=== PATIENT | male | born 1955 | race Caucasian/White ===

== ENCOUNTER 2017-05-12 08:37 | Day surgery (SDC) | payer OTHER ==
[~2017-05-12 08:37] MED LIST: Acetaminophen TAB* 325 MG PO PRN; Buffered Lidocaine 0.9% SYRIN* 5 ML/SYR SYRINGE INTRADERM ONE
[2017-05-12] MEDS ORDERED: Midazolam* 1 MG/ML 2 ML VIAL (2 MG) ONE ×2 (10:38→10:40)
[2017-05-12 11:12] VITALS: BP 124/79
[2017-05-12] MEDS ORDERED: Lidocaine 1% MPF* 2 ML VIAL ONE (15:09)
[2017-05-12] MEDS ORDERED: Phenylephrine 2.5% OPTH.SOL* 2 ML BTL ONE (15:09)
[2017-05-12] MEDS ORDERED: Cyclopentolate 1% OPTH.SOL* 2 ML BTL ONE (15:09)
[2017-05-12] MEDS ORDERED: Neomycin/Polymy/Dex OPHTH.OIN* 3.5 GM ONE (15:10)
[2017-05-12] MEDS ORDERED: Ketorolac 0.5% OPHTH (NF) 0.5 % 5 ML BTL ONE (15:10)
[2017-05-12] MEDS ORDERED: Tropicamide 1% OPTH.SOL* BTL ONE (15:10)
[2017-05-12] MEDS ORDERED: Tetracaine 0.5% OPTH.SOL 4 ML* 1 DROP BTL ONE (15:10)
--- NOTE | 2017-05-13 01:50 | OP ---
DATE OF OPERATION: 05/12/17 - [facility] DATE OF : 53 SURGEON: Dr. Ross Boss. P[employer]ING [employer]SE [employer]ER: None. ANESTHESIA: Topical with intravenous sedation. PRE-OP DIAGNOSIS: Cataract with astigmatism left eye. POST-OP DIAGNOSIS: Cataract with astigmatism left eye. OPERATIVE PROCEDURE: Phacoemulsification and cataract extraction with posterior chamber toric intraocular lens implant, left eye. COMPLICATIONS: None. BLOOD LOSS: None. DESCRIPTION OF PROCEDURE: The patient was seen preoperatively in the holding area and placed in the upright seated position. A lisbeth was made at the 6 o' clock position of the limbus of the left eye. The patient was subsequently brought to the operating room and received a small amount of intravenous sedation. A drop of tetracaine was placed in his left eye. The patient was prepped and draped in the usual sterile fashion for ophthalmic surgery. Attention was directed to the left eye where a speculum was placed. A paracentesis was created at the 5 o'clock position. A 0.1 cc of 1% preservative -free lidocaine was injected into the anterior chamber followed by DisCoVisc. The eye was digitally stabilized and a 2.75 mm keratome was used to create a triplanar clear corneal incision at the 3 o'clock position. A continuous curvilinear capsulorrhexis was created with a cystotome and Utrata forceps. BSS on a cannula was used to hydrodissect the lens from the capsule. Phacoemulsification was performed in a [id number] technique to create four fragments which were removed. Residual cortical material was removed with irrigation and aspiration. Healon was used to inflate the capsular bag. A Bolden marker and marking pen were used to lisbeth the 110 degree access on the limbus. An SN6AT3 19.5 diopter lens was folded and inserted into the capsular bag. A Sinskey hook was used to dial the lens to appropriate axial alignment. The Sinskey hook remained in the eye through paracentesis to stabilize the lens. Irrigation and aspiration was performed to remove viscoelastic from the eye. The Sinskey hook was removed. BSS on a cannula was used to hydrate the corneal stroma and seal the wound. At the end of the case, the pupil was round. The lens was centered and stable and axial line. The eye pressure appeared normal and the wound was watertight. The speculum was removed and topical Maxitrol ointment was placed on the surface of the eye. The eye was closed, patched and shielded and the patient was sent to the recovery room in stable condition with postop instructions and followup appointment given. [id number]/[facility] #: [id number] CIELOD
== END 2017-05-12 11:24 | disposition home or self-care (01) ==
LOC: OREAST 08:37
PROVIDERS: ATTEND Ophthalmology
DX: H25.12 Age-related nuclear cataract, left eye (principal); H52.202 Unspecified astigmatism, left eye; E78.5 Hyperlipidemia, unspecified; G47.33 Obstructive sleep apnea (adult) (pediatric); Z68.41 Body mass index [BMI] 40.0-44.9, adult; M19.90 Unspecified osteoarthritis, unspecified site
CPT/HCPCS: A9270-GY; J2250; V2787

== ENCOUNTER 2017-05-19 06:58 | Day surgery (SDC) | payer OTHER ==
[2017-05-19] MEDS ORDERED: Midazolam* 1 MG/ML 2 ML VIAL (2 MG) ONE ×2 (07:51→08:24)
[2017-05-19] MEDS ORDERED: fentaNYL* 50 MCG/ML 2 ML VIAL (100 MCG VIAL) ONE (07:51)
[2017-05-19 08:52] VITALS: BP 118/72
--- NOTE | 2017-05-20 01:06 | OP ---
OPERATIVE REPORT: DATE OF OPERATION: 05/19/17 - [facility] DATE OF : 53 SURGEON: Dr. Boss. SENIOR FINANCIAL: None. ANESTHESIA: Topical with intravenous sedation. PRE-OP DIAGNOSIS: Cataract, right eye, with astigmatism. POST-OP DIAGNOSIS: Cataract, right eye, with astigmatism. OPERATIVE PROCEDURE: Phacoemulsification and cataract extraction with posterior chamber intraocular toric lens, right eye. COMPLICATIONS: None. BLOOD LOSS: None. OPERATIVE FINDINGS: The patient was seen preoperatively in the holding area who was placed in the upright position. A lisbeth was made at the 6 o'clock position of the limbus of the right eye. The patient was subsequently brought to the operating room where he was given a small amount of intravenous sedation and a drop of tetracaine into the right eye. The patient was prepped and draped in the usual sterile fashion for ophthalmic surgery and attention was directed to the right eye where a speculum was placed. A paracentesis was created at the 11 o'clock position and 0.1 cc of 1% preservative-free lidocaine was injected into the anterior chamber followed by DisCoVisc. The eye was digitally stabilized while a 2.75 mm keratome was used to create a triplanar clear corneal incision at the 9 o'clock position. A continuous curvilinear capsulorrhexis was created with a cystotome and Utrata forceps. BSS on a cannula was used to hydrodissect the lens from the capsule. Phacoemulsification was performed in a [id number] technique to create 4 fragments, which were removed. Residual cortical material was removed with irrigation and aspiration. The capsular bag was filled with Healon, as was the anterior chamber. A Bolden marker and marking pen were used to lisbeth the 43 degrees axis on the cornea. An SN6AT3 19.5 diopter lens was folded and inserted into the capsular bag. It was dialed with the Sinskey hook to the appropriate axial alignment. The Sinskey hook remained in the eye through the paracentesis to stabilize the lens while irrigation and aspiration were performed to remove viscoelastic from the eye. The Sinskey hook was removed. BSS on a cannula was used to hydrate the corneal stroma and seal the wound. At the end of the case, the pupil was round. The lens was centered stable and axially aligned. The eye pressure appeared normal and the wound was watertight. The speculum was removed. Topical Maxitrol ointment was placed on the surface of the eye. The eye was closed, patched and shielded, and the patient was sent to the recovery room in stable condition with postop instructions and followup appointment given. [id number]/[facility] #: [id number] BILLY
== END 2017-05-19 08:52 | disposition home or self-care (01) ==
LOC: OREAST 06:58
PROVIDERS: ATTEND Ophthalmology
DX: H25.11 Age-related nuclear cataract, right eye (principal); H52.201 Unspecified astigmatism, right eye; G47.33 Obstructive sleep apnea (adult) (pediatric); E78.5 Hyperlipidemia, unspecified; M19.90 Unspecified osteoarthritis, unspecified site; F32.89 Other specified depressive episodes
CPT/HCPCS: J2250; J3010; V2787

== ENCOUNTER 2021-09-19 07:39 | Observation (INO) ==
[~2021-09-19 07:39] MED LIST changes: -Acetaminophen TAB* 325 MG PO PRN; -Buffered Lidocaine 0.9% SYRIN* 5 ML/SYR SYRINGE INTRADERM ONE; +Buffered Lidocaine 1% SYRIN 1 ml INTRADERM ONE; +Lactated Ringers 1000 ml BAG 1,000 ML IV SCH
[2021-09-19] MEDS ORDERED: ceFAZolin 2 GM in NS PREMIX 2 GM/100 ML BAG IVPB ONE (07:56)
[2021-09-19] MEDS ORDERED: Buffered Lidocaine 1% SYRIN 1 ml INTRADERM ONE (07:56)
[2021-09-19] MEDS ORDERED: ROPIVACAINE 5 MG/ML 30 ML BTL (0.5%) ONE (08:42)
[2021-09-19] MEDS ORDERED: diPHENhydraMINE 25 mg TAB PO PRN (08:44)
[2021-09-19] MEDS ORDERED: diPHENhydraMINE IV 50 MG/ML 1 ml VIAL (BENADRYL) IV PRN (08:44)
[2021-09-19] MEDS ORDERED: Magnesium Hydroxide LIQ 30 ML UDC PO PRN (08:44)
[2021-09-19] MEDS ORDERED: Lactulose 30 ml UDC PO PRN (08:44)
[2021-09-19] MEDS ORDERED: Ondansetron ODT 4 mg TAB 4 MG TAB PO PRN (08:44)
[2021-09-19] MEDS ORDERED: Ondansetron 4 mg VIAL 2 MG/ML 2 ml VIAL IV PRN ×2 (08:44→10:09)
[2021-09-19] MEDS ORDERED: ceFAZolin 1 GM ADVAN 1 GM in NS 0.9% 50 ML 50 ML IVPB SCH (09:00)
[2021-09-19] MEDS ORDERED: Lidocaine 2% PF 5 ML VIAL ONE (09:27)
[2021-09-19] MEDS ORDERED: Bupivacaine 0.5% SDV PF 30ML VIAL ONE (09:27)
[2021-09-19] MEDS ORDERED: Propofol 10 MG/ML 20 ML BTL ONE (09:27)
[2021-09-19] MEDS ORDERED: Midazolam 2 mg/2 ml VIAL 1 mg/ml 2 ml VIAL (2 mg) ONE (09:27)
[2021-09-19] MEDS ORDERED: fentaNYL 100 mcg/2 ml 50 MCG/ML VIAL ONE (09:27)
[2021-09-19] MEDS ORDERED: Naloxone 0.4 mg VIAL 0.4 mg/ml 1 ml VIAL IV PRN (10:09)
[2021-09-19] MEDS ORDERED: HYDROmorphone 1 MG/1 ML SYRINGE IV PRN (10:09)
[2021-09-19] MEDS ORDERED: DiMENhydriNATE IV 50 mg/ml 1 ml VIAL IV PUSH PRN (10:09)
[2021-09-19] MEDS ORDERED: Phenylephrine IV 10 MG/ML 1 ml VIAL ONE (10:21)
[2021-09-19] MEDS ORDERED: Acetaminophen IV 1 GM/100ML 100 ML IV ONE (10:21)
[2021-09-19] MEDS ORDERED: Midazolam 5 mg/5 ml VIAL 1 mg/ml 5 ml VIAL (5 mg) ONE (10:21)
[2021-09-19] MEDS: Vitamin THERAPEUTIC TAB PO SCH (13:11)
[2021-09-19] MEDS: Magnesium Hydroxide LIQ 30 ML UDC PO SCH ×2 (13:11→20:31)
[2021-09-19] MEDS: Lactated Ringers 1000 ml BAG 1,000 ML IV SCH (13:57)
[2021-09-19] MEDS: ceFAZolin 1 GM ADVAN 1 GM in NS 0.9% 50 ML 50 ML IVPB SCH (16:57)
[2021-09-20] MEDS: Lactated Ringers 1000 ml BAG 1,000 ML IV SCH (00:29)
[2021-09-20] MEDS: ceFAZolin 1 GM ADVAN 1 GM in NS 0.9% 50 ML 50 ML IVPB SCH ×2 (00:29→08:18)
[2021-09-20 06:53] LABS: ABS Lymphocytes 2.1 10^3/ul (1.0-4.8); ABS Monocytes 1.2 10^3/ul (0-0.8); ABS Neutrophils 6.5 10^3/ul (1.5-7.7); Eosinophil % 0.2 %; Hematocrit 35 % (42-52); Lymphocyte % 21.7 %; Mean Corpuscular HGB Conc 34 g/dL (31-36); Mean Corpuscular Hemoglobin 31 pg (27-31); Mean Corpuscular Volume 89 fL (80-94); Mean Platelet Volume 8.5 fL (7.4-10.4); Platelet Count 153 10^3/uL (150-450); Red Blood Count 3.92 10^6 /uL (4.18-5.48); Red Cell Distribution Width 14 % (10-15); White Blood Count 9.9 10^3/uL (3.5-10.8)
[2021-09-20 07:01] LABS: Calcium 8.7 mg/dL (8.6-10.3); Potassium 3.8 mmol/L (3.5-5.0)
[2021-09-20] MEDS: Magnesium Hydroxide LIQ 30 ML UDC PO SCH (08:03)
[2021-09-20] MEDS: Vitamin THERAPEUTIC TAB PO SCH (08:18)
[2021-09-20] MEDS ORDERED: Valsartan/HCTZ 160/25(NF) TAB PO SCH (09:00)
[2021-09-20] MEDS ORDERED: Pneumococcal Vac 23-Polyvalent IM ONE (09:00)
[2021-09-20] MEDS ORDERED: CMCS: Simvastatin 20 mg TAB (NF) PO SCH (09:00)
[2021-09-20] MEDS ORDERED: Flu vaccine *QUAD* 2021-22* 0.5 ML SYRINGE IM ONE (09:00)
[2021-09-20 11:38] VITALS: BP 106/59
== END 2021-09-20 15:10 | disposition home or self-care (01) ==
LOC: SSU 07:39 → OR 07:39
PROVIDERS: ADMIT Orthopaedic Surgery Adult Reconstructive Orthopaedic Surgery; ATTEND Orthopaedic Surgery Adult Reconstructive Orthopaedic Surgery